=== PATIENT | male | born 1965 | race African-American/Black ===

== ENCOUNTER 2018-11-05 07:53 | Emergency (ER) | payer SELFPAY ==
[~2018-11-05] VITALS: Ht 177.8 cm; Wt 80.6 kg
[2018-11-05] MEDS ORDERED: IBUPROFEN 600MG TABLET PO STA (11:00)
[2018-11-05 11:17] VITALS: BP 121/74
== END 2018-11-05 11:22 | disposition home or self-care (01) ==
LOC: ER 10:18
DX: M54.5 Low back pain (principal); M54.2 Cervicalgia; R51 Headache; F12.10 Cannabis abuse, uncomplicated; F17.200 Nicotine dependence, unspecified, uncomplicated; Z87.11 Personal history of peptic ulcer disease; Z88.0 Allergy status to penicillin; V49.49XA Driver injured in collision with other motor vehicles in traffic accident, initial encounter; Y93.89 Activity, other specified; Y92.89 Other specified places as the place of occurrence of the external cause; Y99.8 Other external cause status
CPT/HCPCS: 99283